=== PATIENT | female | born 1955 | race Caucasian/White ===

== ENCOUNTER 2017-02-01 15:35 | Emergency (ER) | payer OTHER ==
[2017-02-01 15:52] VITALS: TEMP 97.7; O2SAT 100
[2017-02-01] MEDS ORDERED: DIPHENHYDRAMINE 50 MG/ML SOL IV ONE (15:54)
[2017-02-01] MEDS ORDERED: PROCHLORPERAZINE EDISYLATE 5 MG/ML SOL IV ONE (15:54)
[2017-02-01] MEDS ORDERED: PROCHLORPERAZINE EDISYLATE 5 MG/ML SOL ONE (15:58)
[2017-02-01] MEDS ORDERED: DIPHENHYDRAMINE 50 MG/ML SOL ONE (15:58)
[2017-02-01] MEDS: SODIUM CHLORIDE 0.9% 500 ML 500 ML IV SCH ×2 (16:00→16:50)
[2017-02-01] MEDS ORDERED: KETOROLAC TROMETHAMINE 30 MG/ML SOL IV ONE (16:03)
[2017-02-01] MEDS ORDERED: KETOROLAC TROMETHAMINE 30 MG/ML SOL ONE (16:14)
[2017-02-01 17:08] VITALS: BP 155/90; PULSE 80; RESP 16
== END 2017-02-01 17:25 | disposition home or self-care (01) ==
LOC: ED 15:35
DX: G43.009 Migraine without aura, not intractable, without status migrainosus (principal)
CPT/HCPCS: 99285; J0780; J1200; J1885; 96365; 96374; 96375; 99284

== ENCOUNTER 2017-12-16 06:21 | Emergency (ER) | payer OTHER ==
[2017-12-16 06:42] VITALS: TEMP 99.2
[2017-12-16 07:19] LABS: APPEARANCE,URINE Clear; BILIRUBIN,URINE NEGATIVE (NEGATIVE); COLOR,URINE Yellow; GLUCOSE, URINE (UA) NEGATIVE (NEGATIVE); KETONES,URINE NEGATIVE (NEGATIVE); LEUKOCYTE ESTERASE ,URINE NEGATIVE (NEGATIVE); NITRATE,URINE NEGATIVE (NEGATIVE); OCCULT BLOOD,URINE NEGATIVE (NEG-TRACE); PH,URINE 5.5
[2017-12-16 07:21] LABS: RBC,URINE 0-2 (0-3AV/HPF); WBC,URINE 0-2 (0-5AV/HPF)
[2017-12-16] MEDS ORDERED: KETOROLAC TROMETHAMINE 30 MG/ML SOL ONE (07:41)
[2017-12-16] MEDS ORDERED: KETOROLAC TROMETHAMINE 30 MG/ML SOL IV ONE (07:42)
[2017-12-16 08:32] LABS: AMPHETAMINES NEGATIVE (NEGATIVE); METHADONE NEGATIVE (NEGATIVE); OPIATES(OP13) NEGATIVE (NEGATIVE); OXYCODONE(OXY) NEGATIVE (NEGATIVE); PROPOXYPHENE(PPX) NEGATIVE (NEGATIVE); TRICYCLIC ANTIDEPRESSANTS NEGATIVE (NEGATIVE)
[2017-12-16 09:45] VITALS: BP 123/86; PULSE 93; RESP 18; O2SAT 92
== END 2017-12-16 09:37 | disposition home or self-care (01) ==
LOC: ED 06:21
DX: S20.219A Contusion of unspecified front wall of thorax, initial encounter (principal); W06.XXXA Fall from bed, initial encounter
CPT/HCPCS: 71120; 71250; 80305; 81001; 93005; 96374; 99283; 99285; J1885

== ENCOUNTER 2018-04-07 13:30 | Emergency (ER) | payer OTHER ==
[2018-04-07 14:00] VITALS: TEMP 98.5
[2018-04-07] MEDS ORDERED: LORAZEPAM 2 MG/ML SOL IV ONE (14:02)
[2018-04-07 14:31] LABS: HEMATOCRIT 40 % (35-47); HEMOGLOBIN 14.2 gm/dl (12.0-15.5); MEAN CORPUSCULAR HEMOGLOBIN 34.2 pg (27.0-32.0); MEAN CORPUSCULAR HGB CONC 35.8 gm/dl (32.0-36.0); MEAN CORPUSCULAR VOLUME 95 fL (81-99)
[2018-04-07 14:36] LABS: ALBUMIN 4.1 gm/dl (3.4-5.0); BILIRUBIN,TOTAL 0.7 mg/dl (0.2-1.0); CALCIUM 9.2 mg/dl (8.5-10.1); CARBON DIOXIDE 28.7 mEq/L (21-32); CREATININE 0.63 mg/dl (0.60-1.00); POTASSIUM 3.4 mMol/L (3.5-5.1); TOTAL PROTEIN 8.2 gm/dl (6.4-8.2)
[2018-04-07] MEDS ORDERED: ACETAMINOPHEN 500 MG 500 MG TAB PO ONE (14:42)
[2018-04-07] MEDS ORDERED: ACETAMINOPHEN 500 MG 500 MG TAB ONE (14:44)
[2018-04-07 15:05] LABS: BAND NEUTROPHILS % (MANUAL) 4 %; LYMPHOCYTES % (MANUAL) 40 % (10-50); MONOCYTES % (MANUAL) 4 % (0-12); NEUTROPHILS % (MANUAL) 51 % (37-80)
[2018-04-07 15:06] LABS: BASOPHILS % (MANUAL) 0 % (0-3); EOSINOPHILS % (MANUAL) 1 % (0-9); NORMAL RBCS PRESENT
[2018-04-07] MEDS ORDERED: KETOROLAC TROMETHAMINE 30 MG/ML SOL IM ONE (15:38)
[2018-04-07] MEDS ORDERED: KETOROLAC TROMETHAMINE 30 MG/ML SOL ONE (16:03)
[2018-04-07 18:38] VITALS: BP 169/118; PULSE 72; RESP 102; O2SAT 96
== END 2018-04-07 16:30 | disposition home or self-care (01) | DRG 563 ==
LOC: ED 13:30
DX: S63.502A Unspecified sprain of left wrist, initial encounter (principal); Z04.1 Encounter for examination and observation following transport accident
CPT/HCPCS: 36415; 73110; 80053; 85007; 85027; 96372; 99283; 99284; J1885

== ENCOUNTER 2018-08-02 19:15 | Emergency (ER) | payer OTHER ==
[2018-08-02 19:33] VITALS: RESP 20
[2018-08-02 20:06] VITALS: BP 133/89; PULSE 83; TEMP 97; O2SAT 95
[2018-08-02] MEDS ORDERED: CEFTRIAXONE 1 GM PDS IM ONE (21:49)
[2018-08-02] MEDS ORDERED: CEFTRIAXONE 1 GM PDS ONE (21:51)
[2018-08-02] MEDS ORDERED: LIDOCAINE HCL 1% MPF 30 SOL ONE (21:53)
[2018-08-02] MEDS ORDERED: LIDOCAINE HCL 1% MPF 30 SOL INFIL ONE (22:00)
== END 2018-08-02 22:20 | disposition home or self-care (01) ==
LOC: ED 19:15
DX: J18.9 Pneumonia, unspecified organism (principal)
CPT/HCPCS: 71046; 96372; 99283; J0696; J2001